=== PATIENT | male | born 1965 | race Caucasian/White ===

== ENCOUNTER 2021-07-18 20:05 | Observation (INO) | payer OTHER, SELFPAY ==
[2021-07-18] VITALS (7 sets, daily range): BP systolic 162–176; BP diastolic 100–112; PULSE 109–121; RESP 19–26; TEMP 36.5–36.8; O2SAT 94–97
--- NOTE | ~2021-07-18 | XR_ITS ---
EXAMINATION: XR chest 1V portable Exam Date/Time: 07/18/2021 20:30 CDT CLINICAL HISTORY: DYSPNEA, HEART FEELS LIKE IT IS FLUTTERING Comparison: None available. RESULT: Lines, tubes, and devices: None. Lungs and pleura: Clear. Cardiomediastinal silhouette: Stable cardiomediastinal silhouette. Other: No acute osseous or upper abdominal finding. IMPRESSION: No acute cardiopulmonary process Reviewed, dictated and finalized at location K.
--- NOTE | ~2021-07-18 | CT_ITS ---
EXAMINATION: CTA chest PE protocol DATE: 07/18/2021 22:02 INDICATION: SOB, tachycardia TECHNIQUE: Computed tomography angiography (CTA) of the chest was performed with 100 mL Omnipaque-350 intravenous contrast timed to evaluate the pulmonary arteries. Coronal maximum intensity projection 3D-reconstructions were created by the technologist. The dose-length product (DLP) was 923.00 mGy-cm. Automated exposure control and iterative reconstruction technique were employed. COMPARISON: X-ray chest, same date. FINDINGS: Study quality: Mild motion artifact, particularly in the left lower lobe. Beam hardening artifact in the right upper lung. Overall adequate. Pulmonary arteries: No pulmonary emboli detected. Thoracic aorta: Normal. Lung parenchyma and airways: Scar/atelectasis in the lingula. 3 mm right upper lobe pulmonary nodule. Thoracic inlet, axillae and chest wall: Unremarkable. Mediastinum: Normal. Heart and pericardium: Normal. Coronary artery calcifications: Absent. Pleura: Unremarkable. Upper abdomen: No significant finding. Bones: No acute osseous finding. IMPRESSION: Mild technical limitations as described above, within that constraint no CT evidence of acute pulmona ry embolus. Reviewed, dictated and finalized at location K. IMPRESSION: Mild technical limitations as described above, within that constraint no CT aptricio dence of acute pulmonary embolus.
--- NOTE | 2021-07-18 20:13 | ECG_ITS ---
Measurements Intervals [place] Rate: 122 P: 50 HI: 174 QRS: -7 QRSD: 89 T: 48 QT: 301 QTc: 430 Interpretive Statements SINUS TACHYCARDIA Electronically Signed On 07-19-2021 11:10:57 CDT by Robert Colon M.D.
--- NOTE | 2021-07-18 20:31 | ED.GENADULT ---
HPI - General Adult General Chief complaint: Shortness of Breath/Dyspnea Stated complaint: shortness of breathe, cough,fever x 2 days Time Seen by Provider: 07/18/21 20:19 Source: patient and RN notes reviewed Mode of arrival: ambulatory Limitations: no limitations History of Present Illness HPI narrative: 56-year-old male with previous history of hypertension presenting to the emergency department for evaluation of worsening exertional shortness of breath today. Patient states that over the last few years he has had worsening exertional shortness of breath. Patient does have history of high blood pressure and had previously been able to stop his blood pressure medications due to weight loss but over the last few years he states he has gained approximately 60 pounds back. Patient does state that he has noticed worsening exertional fatigue with the weight gain. He feels this is acutely worsened today. Patient does have crackles upon arrival to the ED, pitting edema of LE. Patient denies any associated chest pain. Patient denies any fevers. Patient denies any prior history of congestive heart failure or [place]. No previous stress test Patient has not had recent follow-up with his primary care surgeon. Patient does not currently take any medications. Patient is not a smoker but does chew tobacco. Does have secondhand smoke exposure from his . Related Data Home Medications Medication Instructions Recorded Confirmed No Home Medications 07/18/21 07/18/21 Allergies Allergy/AdvReac Type Severity Reaction Status Date / Time Penicillins Allergy Unknown Unknown Verified 07/18/21 20:12 Review of Systems Review of Systems: CONSTITUTIONAL: Denies fever, chills, or sweats. EYES: Denies visual changes, redness, or discharge. ENT: Denies rhinorrhea, congestion, sore throat, or otalgia. CARDIOVASCULAR: Intermittent palpitations RESPIRATORY: Worsening shortness of breath GASTROINTESTINAL: Denies abdominal pain, nausea, vomiting, or diarrhea. GENITOURINARY: Denies dysuria or hematuria. SKIN: Denies rash or itching. MUSCULOSKELETAL: Denies back pain, joint pain, or myalgia. NEUROLOGIC: Denies headache, numbness, or weakness. PSYCHIATRIC: Denies anxiety or depression. [facility] [place] Family History Family History Father Hypertension Family history of malignant neoplasm Social History Social History Smoking status: Never smoker Smokeless tobacco user: chewing tobacco Alcohol intake: never Substance use: never Spiritual care concerns: No Exam Narrative: APPEARANCE: Well appearing, no pain, no distress, well-nourished. HEAD: normocephalic, atraumatic. EYES: PERRLA/EOMI, conjunctivae clear. NOSE: Normal no drainage EARS:TMS clear with good light reflex. THROAT: Pharynx clear, no exudate. NECK: Supple. No adenopathy, no masses. RESPIRATORY: Increased work of breathing. Rhonchi bilaterally CARDIOVASCULAR: tachycardia ABDOMINAL: Soft, nontender, nondistended, normal bowel sounds MUSCULOSKELETAL: Moves all extremities. edema BL LE NEURO: Alert. Cranial nerves II through XII intact. Grossly intact SKIN: Warm, dry. Normal Color Course Course Emergency Course: Due to patient's rhonchi on exam and bilateral edema patient was treated with a dose of 40 mg IV Lasix. Patient's BNP is not elevated. Chest x-ray was read as no acute cardiopulmonary abnormality. CTA was ordered to rule out pulmonary embolism and was negative for PE. ABG shows patient does have some hypoxemia. In response to this patient was placed on 2 L of oxygen by nasal cannula. Influenza a and Covid were negative. Patient remained tachycardic and was started on 25 p.o. metoprolol. This did help the patient's heart rate. Case was discussed with the hospitalist and patient was accepted for admission. Patient and were updated on results of the ED work-up including labs and imaging. They are also
[2021-07-18 20:41] LABS: Basophils Absolute Auto 0.1 K/mm3 (0.0-0.1); Basophils Percent Auto 0.6 % (0.2-1.2); Eosinophils Absolute Auto 0.3 K/mm3 (0-0.3); Eosinophils Percent Auto 2.9 % (0-4.4); Hematocrit 47.4 % (42.0-52.0); Hemoglobin 16.1 g/dL (14.0-18.0); Immature Granulocyte Absolute 0.05 K/mm3 (0.00-0.031); Immature Granulocyte Percent A 0.4 % (0-0.5); Lymphocytes Absolute Auto 1.08 K/mm3 (0.9-3.2); Lymphocytes Percent Auto 9.5 % (18.3-44.2); Mean Corpuscular Hemoglobin 30.1 pg (26-34); Mean Corpuscular Volume 88.6 fl (80-100); Mean Platelet Volume 11.1 fl (7.4-10.4); Monocytes Absolute Auto 0.8 K/mm3 (0.1-0.6); Neutrophils Percent Auto 79.6 % (45.5-73.1); Platelet Count Result 194 k/mm3 (150-375); Red Blood Count 5.35 M/mm3 (4.6-6.20); Red Cell Distribution Width 13.1 % (11.5-14.5); White Blood Count 11.3 K/mm3 (4.5-10.0)
[2021-07-18] MEDS: FUROSEMIDE INJ 40 MG/4 ML VIAL IV PUSH (20:46)
[2021-07-18 20:51] LABS: Alanine Aminotransferase 34 U/L (4-50); Albumin Level 4.9 g/dL (3.5-5.1); Alkaline Phosphatase 96 U/L (38-126); Anion Gap 12 mmol/L (8-16); Aspartate Amino Transferase 32 U/L (17-59); Bilirubin,Total 1.2 mg/dL (0.2-1.3); Blood Urea Nitrogen 16 mg/dL (9-20); Calcium 9.1 mg/dL (8.4-10.2); Carbon Dioxide 23 mmol/L (22-30); Chloride 104 mmol/L (98-107); Estimated CRCL calculation 113 ml/min; Estimated Glomerular Filt Rate > 60; Glucose 129 mg/dL (65-110); Lactic Acid Reflex 1.5 mmol/L (0.7-2.1); Potassium 3.3 mmol/L (3.4-5.0); Sodium 139 mmol/L (137-145)
[2021-07-18 20:57] LABS: INR 1.2; Prothrombin Time 14.6 Seconds (11.1-14.7)
[2021-07-18 20:58] LABS: Partial Thromboplastin Time 33.2 SECONDS (22.3-36.8)
[2021-07-18 21:11] LABS: NT Pro B Type Natriuretic Pept 61 pg/mL (5-100); Troponin I < 0.012 ng/mL (0.000-0.034)
[2021-07-18 21:34] LABS: Influenza A QL RT-PCR Negative (Negative); Influenza B QL RT-PCR Negative (Negative); SARS-CoV-2 RNA PCR Negative
[2021-07-18 21:45] LABS: Alveolar/Arterial O2 Gradient 52.9 mmHg; Base Excess ABG 0.8 mEq/l (+/-2.0); Fractional Inspired Oxygen 21 %; HCO3 ABG 23.4 mEq/l (22.0-26.0); Oxygen Content ABG 21.2 %vol (16.0-22.0); Oxygen Saturation ABG 92.3 % (95.0-100.0); Oxyhemoglobin 91.5 % THb (90.0-100.0); PCO2 ABG 32.2 mmHg (35.0-45.0); PO2 ABG 58.3 mmHg (80.0-100.0); PO2 FiO2 Ratio Arterial Blood 2.78 %; Total Hemoglobin 16.5 g/dL (12.0-18.0); pH ABG 7.479 (7.350-7.450)
[2021-07-18 21:46] LABS: Device ROOM AIR; Modified Allen's Test Pass; Site Drawn RIGHT RADIAL
[2021-07-18] MEDS: ALBUTEROL SULFATE NEB 2.5 MG/0.5 ML INH 5 MG INHALATION (22:26)
[2021-07-18] MEDS: METOPROLOL SUCCINATE EXT REL 25 MG TABCR PO (23:46)
[2021-07-19] VITALS (11 sets, daily range): BP systolic 133–155; BP diastolic 75–97; PULSE 85–97; RESP 18–20; TEMP 36.5–37.3; O2SAT 92–99; BMI 36.1
--- NOTE | 2021-07-19 | ECHO_ITS ---
Patient Info Name: Broderick Rucker Age: 56 years : 1965 Gender: Male Ht: 72 in Wt: 286 lbs BSA: 2.62 m2 HR: 88 bpm BP: 133 / 75 mmHg Heart Rhythm: Sinus Rhythm Exam Date: 07/19/2021 11:23 AM Exam Location: [facility] Patient Status: Inpatient Admit Date: 07/18/2021 Staff Ordering Physician: Marie Mc DO Community Arts Worker: Rikki Palacio RDCS, RT Attending Provider: Marie Mc DO Referring Physician: Jesusita LUBIN; Exam Type: CA echo doppler color flow Study Info Indications R06.00 - Dyspnea, unspecified Complete two-dimensional, color flow and Doppler transthoracic echocardiogram is performed. Strain analysis performed. Summary 1. Complete two-dimensional, color flow and Doppler transthoracic echocardiogram is performed. 2. Left ventricular chamber dimension is normal. 3. Left ventricular systolic function is normal, estimated at 55-60%. 4. There is no increased left ventricular wall thickness. 5. The left ventricular diastolic function is grade I diastolic dysfunction. 6. Global longitudinal strain is mildly elevated at -16 %. 7. There is no aortic valve stenosis. Left Ventricle Left ventricular chamber dimension is normal. Left ventricular systolic function is normal, estimated at 55-60%. There is no increased left ventricular wall thickness. The left ventricular diastolic function is grade I diastolic dysfunction. Global longitudinal strain is mildly elevated at -16 %. Right Ventricle Right ventricular chamber dimension is normal. Right ventricular systolic function is normal. Left Atria Left atrial chamber dimension is normal. Right Atria Right atrial chamber dimension is mildly enlarged. Aortic Valve The aortic valve is not well visualized. There is no aortic valve stenosis. There is no aortic valve regurgitation. Pulmonic Valve The pulmonic valve is not well visualized. There is trace pulmonic regurgitation. Mitral Valve The mitral valve has normal leaflets. There is trace mitral valve regurgitation. Tricuspid Valve The tricuspid valve leaflets are normal. There is trace tricuspid valve regurgitation. Unable to estimate PA systolic pressure due to poor spectral resolution of tricuspid regurgitant jet velocity. Pericardium/Pleural The pericardium appears epicardial fat pad. There is trivial pericardial effusion. Inferior Vena Cava Normal inferior vena cava with >50% collapse upon inspiration consistent with normal right atrial pressure, 5 mmHg. Aorta The aortic root size at the sinus of Valsalva is normal. Left Ventricular Outflow Tract Name Value Normal LVOT 2D LVOT Diameter 2.1 cm LVOT Doppler LVOT Peak Gradient 4 mmHg LVOT Mean Gradient 3 mmHg LVOT VTI 19 cm LVOT VTI/AV VTI Ratio 1.0 LVOT Stroke Volume 68 ml LVOT CO 6.4 l/min LVOT CI 2.5 l/min/m2 Mitral Valve
[2021-07-19] MEDS: POTASSIUM CHLORIDE 20 MEQ TABLET 40 MEQ PO (01:13)
--- NOTE | 2021-07-19 01:31 | ADMGEN ---
This patient, Broderick Rucker, was admitted to 2 Medical Room 257-01. Patient/family oriented to hospital policies and general routines including ID bracelet, bed and alarms, visiting hours, pain management, procedures, bathroom and other care routines, personal items, smoking policy, room service/diet, and visiting hours. Information on how to activate the Rapid Response Team has been discussed. Patient/Family are encouraged to report perceived risks to care and to ask questions if they do not understand what they are told or what they should do.
[2021-07-19] MEDS: FUROSEMIDE INJ 40 MG/4 ML VIAL IV PUSH ×2 (08:49→20:48)
[2021-07-19 09:01] LABS: Hematocrit 46.6 % (42.0-52.0); Hemoglobin 16.2 g/dL (14.0-18.0); Mean Corpuscular HGB Conc 34.8 g/dl (32-36); Mean Corpuscular Hemoglobin 30.5 pg (26-34); Mean Corpuscular Volume 87.6 fl (80-100); Platelet Count Result 173 k/mm3 (150-375); Red Blood Count 5.32 M/mm3 (4.6-6.20); Red Cell Distribution Width 13.2 % (11.5-14.5); White Blood Count 7.9 K/mm3 (4.5-10.0)
[2021-07-19 09:15] LABS: Anion Gap 7 mmol/L (8-16); Blood Urea Nitrogen 17 mg/dL (9-20); Calcium 8.9 mg/dL (8.4-10.2); Carbon Dioxide 31 mmol/L (22-30); Chloride 102 mmol/L (98-107); Estimated CRCL calculation 99 ml/min; Estimated Glomerular Filt Rate > 60; Glucose 117 mg/dL (65-110); Magnesium 2.5 mg/dL (1.6-2.3); Potassium 3.5 mmol/L (3.4-5.0); Sodium 140 mmol/L (137-145)
--- NOTE | 2021-07-19 10:41 | ECG_ITS ---
Measurements Intervals [place] Rate: 90 P: 31 GA: 180 QRS: 0 QRSD: 90 T: 46 QT: 345 QTc: 422 Interpretive Statements SINUS RHYTHM COMPARED TO ECG 07/18/2021 20:21:38 SINUS RHYTHM NOW PRESENT Electronically Signed On 07-19-2021 11:15:20 CDT by Robert Colon M.D.
--- NOTE | 2021-07-19 12:08 | PM.IMHP ---
H&P: HPI History of Present Illness Date/Time: 07/19/21 12:08 ED-HPI narrative: 56-year-old male with previous history of hypertension presenting to the emergency department for evaluation of worsening exertional shortness of breath today. Patient states that over the last few years he has had worsening exertional shortness of breath. Patient does have history of high blood pressure and had previously been able to stop his blood pressure medications due to weight loss but over the last few years he states he has gained approximately 60 pounds back. Patient does state that he has noticed worsening exertional fatigue with the weight gain. He feels this is acutely worsened today. Patient does have crackles upon arrival to the ED, pitting edema of LE. Patient denies any associated chest pain. Patient denies any fevers. Patient denies any prior history of congestive heart failure or [place]. No previous stress test Patient has not had recent follow-up with his primary care surgeon. Patient does not currently take any medications. Patient is not a smoker but does chew tobacco. Does have secondhand smoke exposure from his . 07/19/2021 interval history: patient with remote history of hypertension, was taken off the hypertensive medication as patient had post to some weight however last few years patient has gained 60 lb and has developed shortness of breath worse with a exertion was not improving and was getting progressively worse, presented emergency depart with complaint of persistent shortness of breath worsen with exertion, suspect patient has CHF howvever his BNP is only 61, patient was started on IV Lasix from ER, also in emergency depart patient blood pressure was elevated patient was given IV Lasix and metoprolol his blood pressure trending down, also patient was tachycardia started the patient on metoprolol tartrate 25 mg b.i.d. is heart rate is trending down too. patient states his clinical symptoms are improving, we have ordered cardiac echo to further evaluate, Patient had CTA of chest it did not show any PE nor there is any pulmonoary issue, will CPM, will follow up on ECHO and further recommendation to follow patient admitted as observation status Chief Complaint: shortness of breath Review of Systems Review of Systems: All systems reviewed & are unremarkable except as noted in HPI and below PMFSH Family History Family History Father Hypertension Family history of malignant neoplasm Social History Social History Smoking status: Never smoker Smokeless tobacco user: chewing tobacco Alcohol intake: never Substance use: never Spiritual care concerns: No Meds Home Medications and Allergies Home Medications Medication Instructions Recorded Confirmed Type No Home Medications 07/18/21 07/18/21 History Allergies Allergy/AdvReac Type Severity Reaction Status Date / Time Penicillins Allergy Unknown Unknown Verified 07/18/21 20:12 Vital Signs Vital Signs - 24 hr 07/18/21 20:09 07/18/21 20:30 07/18/21 20:48 Temperature 97.7 F 98.2 F Pulse Rate 120 H 121 H Respiratory Rate 22 H 26 H Blood Pressure 176/100 H 162/112 H Pulse Oximetry 95 96 94 07/18/21 22:26 07/18/21 22:35 07/18/21 22:51 Temperature Pulse Rate 114 H 109 H Respiratory Rate 23 H 19 Blood Pressure Pulse Oximetry 97 07/18/21 23:46 07/19/21 01:17 07/19/21 01:31 Temperature 99.1 F Pulse Rate 120 H 97 95 Respiratory Rate 18 20 Blood Pressure 154/96 H 155/91 H Pulse Oximetry 99 95 07/19/21 01:55 07/19/21 04:00 07/19/21 04:55 Temperature 98.7 F Pulse Rate 91 89 88 Respiratory Rate 20 Blood Pressure 133/75 Pulse Oximetry 92 07/19/21 08:00 Temperature Pulse Rate 93 Respiratory Rate 18 Blood Pressure Pulse Oximetry 95 Exam Narrative: moderately obese Patient is comfortable, NAD HEENT: eyes are clear and none ic
[2021-07-20] VITALS: PULSE 84
[2021-07-20 04:00] VITALS: PULSE 76
[2021-07-20 04:35] VITALS: BP 136/82; PULSE 77; RESP 20; TEMP 36.6; O2SAT 93
[2021-07-20 05:00] LABS: Anion Gap 12 mmol/L (8-16); Blood Urea Nitrogen 24 mg/dL (9-20); Calcium 8.8 mg/dL (8.4-10.2); Carbon Dioxide 26 mmol/L (22-30); Chloride 100 mmol/L (98-107); Estimated CRCL calculation 109 ml/min; Estimated Glomerular Filt Rate > 60; Glucose 107 mg/dL (65-110); Potassium 3.3 mmol/L (3.4-5.0); Sodium 138 mmol/L (137-145)
[2021-07-20 08:00] VITALS: PULSE 92
[2021-07-20] MEDS: ENOXAPARIN 40 MG/0.4 ML SYRINGE SUB-Q (08:15)
[2021-07-20] MEDS: FUROSEMIDE INJ 40 MG/4 ML VIAL IV PUSH (08:15)
[2021-07-20] MEDS: POTASSIUM CHLORIDE 20 MEQ TABLET 40 MEQ PO (09:15)
--- NOTE | 2021-07-20 10:23 | PM.DS ---
DS: Admitting Diagnosis Discharge Date 07/20/2021 Admitting Diagnosis Chest pain DS: Discharge Diagnosis Discharge Diagnosis (1) Tachycardia: Code(s): R00.0 - Tachycardia, unspecified Status: Acute Assessment and Plan: 07/19/2021 interval history: patient with remote history of hypertension, was taken off the hypertensive medication as patient had post to some weight however last few years patient has gained 60 lb and has developed shortness of breath worse with a exertion was not improving and was getting progressively worse, presented emergency depart with complaint of persistent shortness of breath worsen with exertion, suspect patient has CHF howvever his BNP is only 61, patient was started on IV Lasix from ER, also in emergency depart patient blood pressure was elevated patient was given IV Lasix and metoprolol his blood pressure trending down, also patient was tachycardia started the patient on metoprolol tartrate 25 mg b.i.d. is heart rate is trending down too. patient states his clinical symptoms are improving, we have ordered cardiac echo to further evaluate, Patient had CTA of chest it did not show any PE nor there is any pulmonoary issue, will CPM, will follow up on ECHO and further recommendation to follow (2) Hypoxia: Code(s): R09.02 - Hypoxemia Status: Acute Assessment and Plan: upon arrival patient was hypoxic however currently is on room air will continue to monitor. (3) Hypertension: Code(s): I10 - Essential (primary) hypertension Status: Acute Assessment and Plan: patient was started on metoprolol and IV Lasix his blood pressure is trending continue to monitor DS: Summary Hospital Course Reason for hospitalization: ED-HPI narrative: 56-year-old male with previous history of hypertension presenting to the emergency department for evaluation of worsening exertional shortness of breath today. Patient states that over the last few years he has had worsening exertional shortness of breath. Patient does have history of high blood pressure and had previously been able to stop his blood pressure medications due to weight loss but over the last few years he states he has gained approximately 60 pounds back. Patient does state that he has noticed worsening exertional fatigue with the weight gain. He feels this is acutely worsened today. Patient does have crackles upon arrival to the ED, pitting edema of LE. Patient denies any associated chest pain. Patient denies any fevers. Patient denies any prior history of congestive heart failure or [place]. No previous stress test Patient has not had recent follow-up with his primary care surgeon. Patient does not currently take any medications. Patient is not a smoker but does chew tobacco. Does have secondhand smoke exposure from his . 07/19/2021 interval history: patient with remote history of hypertension, was taken off the hypertensive medication as patient had post to some weight however last few years patient has gained 60 lb and has developed shortness of breath worse with a exertion was not improving and was getting progressively worse, presented emergency depart with complaint of persistent shortness of breath worsen with exertion, suspect patient has CHF howvever his BNP is only 61, patient was started on IV Lasix from ER, also in emergency depart patient blood pressure was elevated patient was given IV Lasix and metoprolol his blood pressure trending down, also patient was tachycardia started the patient on metoprolol tartrate 25 mg b.i.d. is heart rate is trending down too. patient states his clinical symptoms are improving, we have ordered cardiac echo to further evaluate, Patient had CTA of chest it did not show any PE nor there is any pulmonoary issue, will CPM, will follow up on ECHO and further recommendation to follow Hospital Course: Patient clinical symptoms are improving and he wants to be discharged today
== END 2021-07-20 13:14 | disposition home or self-care (01) ==
LOC: ANHED 20:56 → ANH2MED 07-19 01:45
PROVIDERS: Emergency Medicine; Admitting Provider Internal Medicine; Emergency Provider Emergency Medicine; PCP Physician Assistant; Visit Provider Family Medicine
DX: R00.0 Tachycardia, unspecified (principal); R09.02 Hypoxemia; R06.02 Shortness of breath; I10 Essential (primary) hypertension; F17.220 Nicotine dependence, chewing tobacco, uncomplicated; R53.83 Other fatigue; Z20.822 Contact with and (suspected) exposure to COVID-19
CPT/HCPCS: 36415; 36600; 71045; 71275; 80048; 80053; 82805; 83605; 83735; 83880; 84484; 85025; 85027; 85610; 85730; 87502; 93005; 93306; 94640; 96372; 96374; 96376; 99285; A9270; C9803; G0378; J1650; J1940; Q9967; U0003; U0005